=== PATIENT | male | born 1990 | race Two or more races ===

== ENCOUNTER 2019-09-06 14:03 | Emergency (ER) | payer OTHER ==
[~2019-09-06] VITALS: Ht 170.2 cm; Wt 70.3 kg
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
--- NOTE | 2019-09-06 14:15 | NUR ---
PT NOW REPORTS HE FELL AND HIT HIS HEAD. -KO PLACED ON MONITOR AND PULSE OX.
[2019-09-06] MEDS ORDERED: IV NS 0.9% 1,000 ML BAG IV ONE (14:30)
[2019-09-06] MEDS ORDERED: ACETAMINOPHEN ES 500 MG TABLET ONE (14:33)
--- NOTE | 2019-09-06 14:36 | NUR ---
PT BROUGHT TO CT
[2019-09-06] MEDS ORDERED: OLANZAPINE 10 MG VIAL IM ONE ×2 (14:49→15:00)
[2019-09-06] MEDS ORDERED: ACETAMINOPHEN ES 500 MG TABLET PO ONE (15:00)
--- NOTE | 2019-09-06 15:22 | NUR ---
PT BEING RESTLESS.
[2019-09-06] MEDS ORDERED: HALOPERIDOL LACTATE INJ 5 MG/ML VIAL ONE (15:29)
[2019-09-06] MEDS ORDERED: diphenhydrAMINE HCL 50 MG/ML VIAL ONE (15:29)
[2019-09-06] MEDS ORDERED: LORAZEPAM INJ 2 MG/ML VIAL ONE (15:29)
[2019-09-06] MEDS ORDERED: diphenhydrAMINE HCL 50 MG/ML VIAL IM ONE (15:30)
[2019-09-06] MEDS ORDERED: LORAZEPAM INJ 2 MG/ML VIAL IM ONE (15:30)
[2019-09-06] MEDS ORDERED: HALOPERIDOL LACTATE INJ 5 MG/ML VIAL IM ONE (15:30)
[2019-09-06] MEDS ORDERED: TETRACAINE HCL 0.5% OPHTALMIC 15 ML BOTTLE OP ONE (15:30)
--- NOTE | 2019-09-06 15:40 | NUR ---
PT PLACED ON GLAZIER STAINED GLASS
[2019-09-06] MEDS ORDERED: LIDOCAINE 2% JEL UROJET 10 ML MM ONE ×2 (15:54→16:00)
--- NOTE | 2019-09-06 15:57 | NUR ---
Patient is resting comfortably in bed. Easily aroused. VSS.
[2019-09-06 16:11] LABS: BASOPHILS # (AUTO) 0.1 /CMM (0.0-0.2); BASOPHILS % (AUTO) 0.4 % (0.0-2.0); EOSINOPHILS % (AUTO) 0.2 % (0.0-6.0); HEMATOCRIT 43 % (39-51); LYMPHOCYTES # (AUTO) 2.3 /CMM (0.8-4.8); LYMPHOCYTES % (AUTO) 14.9 % (20.0-44.0); MEAN CORPUSCULAR HGB CONC 35 g/dl (31.0-36.0); MEAN CORPUSCULAR VOLUME 92 fL (80-96); MONOCYTES # (AUTO) 1.1 /CMM (0.1-1.30); NEUTROPHILS # (AUTO) 12.1 /CMM (1.8-8.9); NEUTROPHILS % (AUTO) 77.5 % (43.0-81.0); PLATELET COUNT (AUTO) 332 /CMM (150-450); RED BLOOD CELL COUNT(AUTO) 4.73 MIL/uL (4.5-6.0); WHITE BLOOD COUNT (AUTO) 15.7 K/uL (4.3-11.0)
[2019-09-06 16:20] LABS: CALCIUM, SERUM 9.2 mg/dL (8.5-10.1); CREATININE 1.3 mg/dL (0.6-1.3); POTASSIUM 3.7 mmol/L (3.5-5.1)
--- NOTE | 2019-09-06 16:25 | NUR ---
URINE COLLECTED AND SENT TO LAB
[2019-09-06 16:33] LABS: ALBUMIN 4.4 g/dL (3.4-5.0); BILIRUBIN,DIRECT 0.1 mg/dL (0.0-0.2); BILIRUBIN,TOTAL 0.7 mg/dL (0.2-1.0); SALICYLATE 0.8 mg/dL (2.8-20.0); TOTAL PROTEIN, SERUM 8.1 g/dL (6.4-8.2)
[2019-09-06 16:33] LABS: BILIRUBIN,URINE SMALL (NEGATIVE); BLOOD, URINE Moderate Ery/uL (NEGATIVE); KETONES,URINE Trace (NEGATIVE); LEUKOCYTE ESTERASE ,URINE Negative (NEGATIVE); NITRITE, URINE Negative (NEGATIVE); PH,URINE 5.5 (5.0-8.0); PROTEIN,URINE Trace mg/dl (NEGATIVE); UGLUCOSE Negative (NEGATIVE); UROBILINOGEN,URINE 0.2 EU/dL (0.2)
[2019-09-06 16:35] LABS: APPEARANCE,URINE Slightly Cloudy (CLEAR); COLOR,URINE DARK YELLOW (YELLOW)
[2019-09-06 16:38] LABS: RBC,URINE 30-50 /HPF (0-2)
[2019-09-06 16:39] LABS: BACTERIA,URINE None seen /HPF (None Seen); MUCUS,URINE Few /LPF (None Seen); SQUAMOUS EPITHELIAL CELL,UR Few /HPF (None Seen); WBC,URINE 0-2 /HPF (0-3)
--- NOTE | 2019-09-06 17:04 | NUR ---
Patient is resting comfortably in bed with eyes closed. Easily aroused. VSS.
--- NOTE | 2019-09-06 17:22 | NUR ---
PT BROUGHT BACK FROM CT
--- NOTE | 2019-09-06 18:20 | NUR ---
PATIENT IS ASLEEP. VSS. NO ACUTE DISTRESS NOTED.
--- NOTE | 2019-09-06 19:04 | NUR ---
PATIENT RESTING COMFORTABLY. NO ACUTE DISTRESS NOTED. VSS.
--- NOTE | 2019-09-06 20:01 | NUR ---
Patient is asleep. vss.
--- NOTE | 2019-09-06 20:48 | NUR ---
PT RESTING COMFORTABLY.
--- NOTE | 2019-09-06 21:45 | NUR ---
PATIENT IS ASLEEP. VSS.
--- NOTE | 2019-09-06 22:38 | NUR ---
PATIENT IS RESTING COMFORTABLY. VSS. PT ASLEEP.
--- NOTE | 2019-09-06 23:49 | NUR ---
PT AWAKE. BLANKETS PROVIDED.
--- NOTE | 2019-09-07 01:03 | NUR ---
PATIENT IS AROUSED EASILY. VSS. PT ASLEEP
--- NOTE | 2019-09-07 02:39 | NUR ---
pt asleep. vss.
--- NOTE | 2019-09-07 04:10 | NUR ---
Pt appears to be sleeping soundly with no s/s of pain or distress.
--- NOTE | 2019-09-07 05:40 | NUR ---
pt ok to be discharged per Dr Lucas. Patient discharged to home in stable condition. Written and verbal after care instructions given. Patient verbalizes understanding of instruction.Patient is awake and alert to self, day, and place. pt ambulatory with a steady gait
[2019-09-07 05:42] VITALS: BP 124/75
== END 2019-09-07 05:43 | disposition home or self-care (01) ==
LOC: ER 14:05
DX: R51 Headache (principal); M54.2 Cervicalgia; R20.8 Other disturbances of skin sensation; F20.9 Schizophrenia, unspecified; R45.1 Restlessness and agitation
CPT/HCPCS: 36415; 70450; 70486; 72125; 80048; 80076; 80305; 80307; 80329; 81001; 85025; 96372 ×4; 99284; G0480; J1200; J1630; J2060; J3490 ×2; 81000-TC

== ENCOUNTER 2021-04-06 00:06 | Emergency (ER) | payer SELFPAY ==
[~2021-04-06] VITALS: Ht 165.1 cm; Wt 63.5 kg
[2021-04-06 00:06] VITALS: BP 146/107
== END 2021-04-06 00:58 | disposition left against medical advice (07) ==
LOC: ER 00:13
DX: Z53.21 Procedure and treatment not carried out due to patient leaving prior to being seen by health care provider (principal); R11.0 Nausea; F20.9 Schizophrenia, unspecified

== ENCOUNTER 2022-03-29 20:34 | Emergency (ER) | payer OTHER ==
[~2022-03-29] VITALS: Ht 167.6 cm; Wt 63.5 kg
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
--- NOTE | 2022-03-29 20:55 | NUR ---
[employer] AT BEDSIDE FOR WOUND CLEANING
--- NOTE | 2022-03-29 21:51 | NUR ---
Patient discharged to [facility] in stable condition. Written and verbal after care instructions given. Patient verbalizes understanding of instruction.
[2022-03-29 21:52] VITALS: BP 123/80
== END 2022-03-29 21:52 | disposition left against medical advice (07) ==
LOC: ER 20:44
DX: S61.411A Laceration without foreign body of right hand, initial encounter; F20.9 Schizophrenia, unspecified; Z59.00 Homelessness unspecified; W25.XXXA Contact with sharp glass, initial encounter; Y93.89 Activity, other specified; Y92.89 Other specified places as the place of occurrence of the external cause; Y99.8 Other external cause status
CPT/HCPCS: 73130; 99283; A6403